=== PATIENT | female | born 1970 | race African-American/Black ===

== ENCOUNTER 2018-06-21 07:17 | Emergency (ER) | payer OTHER ==
[~2018-06-21] VITALS: Ht 170.2 cm; Wt 104.3 kg
--- NOTE | 2018-06-21 07:36 | PHYS DOC ---
Adult General Chief Complaint Chief Complaint: CHEST PAIN HPI HPI 47-year-old female presents with a 2 day history of constant left-sided chest discomfort. She states the pain is sharp in nature and made much worse when she takes a deep breath. She states when she takes a deep breath it feels like there something pulling on the left side. She has had a cough for approximately 2 months. She denies any fever chills or sweats but she states people in the house have been running around sick. She denies hemoptysis. She denies any dyspnea on exertion or any significant shortness of breath. 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 He denies any unilateral leg swelling or pain. She states when she is up and moving around she actually feels better and is definitely not short of breath with exertion. Patient states that she has had a dry cough that is not particularly bothersome over the last 2 months[] Review of Systems Review of Systems Constitutional: Denies fever or chills [] Eyes: Denies change in visual acuity, redness, or eye pain [] HENT: Denies nasal congestion or sore throat [] Respiratory: Per history of present illness[] Cardiovascular: No additional information not addressed in HPI [] GI: Denies abdominal pain, nausea, vomiting, bloody stools or diarrhea [] : Denies dysuria or hematuria [] Musculoskeletal: Denies back pain or joint pain [] Integument: Denies rash or skin lesions [] Neurologic: Denies headache, focal weakness or sensory changes [] Endocrine: Denies polyuria or polydipsia [] All other systems were reviewed and found to be within normal limits, except as documented in this note. Current Medications Current Medications Current Medications Medications (Trade) Dose Ordered Sig/[facility] Start Time Stop Time Status Last Admin Dose Admin Aspirin (Children'S Aspirin) 324 mg 1X ONCE 06/21/18 07:45 06/21/18 07:46 DC 06/21/18 08:16 324 MG Ketorolac Tromethamine (Toradol 30mg Vial) 30 mg 1X ONCE 06/21/18 08:00 06/21/18 08:01 DC 06/21/18 08:17 30 MG Allergies Allergies Allergies Coded Allergies Type Severity Reaction Last Updated Verified alendronate sodium Adverse Reaction Unknown Unknown 06/21/18 Yes hydrocodone Adverse Reaction Unknown Itching 06/21/18 Yes Physical Exam Physical Exam Constitutional: Well developed, well nourished, mild distress, non-toxic appearance. [] HENT: Normocephalic, atraumatic, bilateral external ears normal, oropharynx moist, no oral exudates, nose normal. [] Eyes: PERRLA, EOMI, conjunctiva normal, no discharge. [] Neck: Normal range of motion, no tenderness, supple, no stridor. [] Cardiovascular:Heart rate regular rhythm, no murmur [] Lungs & Thorax: Bilateral breath sounds clear to auscultation [] Abdomen: Bowel sounds normal, soft, no tenderness, no masses, no pulsatile masses. [] Skin: Warm, dry, no erythema, no rash. [] Back: No tenderness, no CVA tenderness. [] Extremities: No tenderness, no cyanosis, no clubbing, ROM intact, no edema. [] Neurologic: Alert and oriented X 3, normal motor function, normal sensory function, no focal deficits noted. [] Psychologic: Affect normal, judgement normal, mood normal. [] Current Patient Data Vital Signs Vital Signs Date Time Temp Pulse Resp B/P (MAP) Pulse Ox O2 Delivery O2 Flow Rate FiO2 06/21/18 07:20 98.4 86 18 171/82 (111) 99 Room Air 98.4 Lab Values Laboratory Tests Test 06/21/18 07:45 White Blood Count 13.8 x10^3/uL (4.0-11.0) H Red Blood Count 4.99 x10^6/uL (3.50-5.40) Hemoglobin 12.3 g/dL (12.0-15.5) Hematocrit 37.9 % (36.0-47.0) Mean Corpuscular Volume 76 fL (79-100) L Mean Corpuscular Hemoglobin 25 pg (25-35) Mean Corpuscular Hemoglobin Concent 33 g/dL (31-37) Red Cell Distribution Width 15.9 % (11.5-14.5) H Platelet Count 426 x10^3/uL (140-400) H Neutrophils (%) (Auto) 61 % (31-73) Lymphocytes (%) (Auto) 31 % (24-48) Monocytes (%) (Auto) 6 % (0-9) Eosinophils (%) (Auto) 1 % (0-3) Basophils (%) (Auto) 1 % (0-3) Neutrophils # (Auto) 8.4 x10^3uL (1.8-7.7) H Lymphocytes # (Auto) 4.3 x10^3/uL (1.0-4.8) Monocytes # (Auto) 0.9 x10^3/uL (0.0-1.1) Eosinophils # (Auto) 0.1 x10^3/uL (0.0-0.7) Basophils # (Auto) 0.1 x10^3/uL (0.0-0.2) Sodium Level 142 mmol/L (136-145) Potassium Level 4.0 mmol/L (3.5-5.1) Chloride Level 103 mmol/L (98-107) Carbon Dioxide Level 28 mmol/L (21-32) Anion Gap 11 (6-14) Blood Urea Nitrogen 10 mg/dL (7-20) Creatinine 0.8 mg/dL (0.6-1.0) Estimated GFR (Cockcroft-Gault) 77.2 BUN/Creatinine Ratio 13 (6-20) Glucose Level 107 mg/dL (70-99) H Calcium Level 9.3 mg/dL (8.5-10.1) Total Bilirubin 0.9 mg/dL (0.2-1.0) Aspartate Amino Transferase (AST) 17 U/L (15-37) Alanine Aminotransferase (ALT) 20 U/L (14-59) Alkaline Phosphatase 80 U/L (46-116) Troponin I Quantitative < 0.017 ng/mL (0.000-0.055) IS-Ngj-O-Type Natriuretic Peptide 16 pg/mL (0-124) Total Protein 8.5 g/dL (6.4-8.2) H Albumin 3.6 g/dL (3.4-5.0) Albumin/Globulin Ratio 0.7 (1.0-1.7) L Laboratory Tests 06/21/18 07:45 Laboratory Tests 06/21/18 07:45 EKG EKG [] Interpretation Time: EKG: Normal sinus rhythm rate of [address]-T changes Radiology/Procedures Radiology/Procedures [] Impressions: PROCEDURE: CHEST AP ONLY EXAM: Chest, single view. HISTORY: Chest pain. COMPARISON: None. FINDINGS: A frontal view of the chest is obtained. There is no infiltrate, pleural effusion or pneumothorax. The heart is normal in size. IMPRESSION: No acute pulmonary finding. Course & Med Decision Making Course & Med Decision Making Pertinent Labs and Imaging studies reviewed. (See chart for details) [ED course: Evaluation reveals a 47-year-old female with fairly constant atypical sounding chest pain for the last 2 days. Her troponin is negative and EKG is unremarkable. She is not tachycardic or hypoxic. I treated her with Toradol for the presumptive diagnosis of pleurisy and she did improve during her stay in the department. At this point I do not believe that she needs observation and can have a stress test as an outpatient.] Dragon Disclaimer Dragon Disclaimer This electronic medical record was generated, in whole or in part, using a voice recognition dictation system. Departure Departure Impression: Primary Impression: Pleurisy Disposition: 01 HOME, SELF-CARE Condition: IMPROVED Patient Instructions: Pleurisy Additional Instructions: Follow with her primary care physician this week for recheck. Return to the emergency department with any new or concerning symptoms Scripts Naproxen (NAPROXEN) 500 Mg Tablet 1 TAB PO BID PRN for PAIN, #30 TAB 1 Refill Prov: YAMILE MONAE DO 06/21/18 YAMILE MONAE DO Jun 21, 2018 07:36
--- NOTE | 2018-06-21 07:43 | EKG ---
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
[2018-06-21] MEDS ORDERED: ASPIRIN CHEWABLE 81 MG TABLET. PO ONE (07:45)
[2018-06-21 07:57] LABS: BASO # 0.1 x10^3/uL (0.0-0.2); BASO % 1 % (0-3); EOS # 0.1 x10^3/uL (0.0-0.7); EOS % 1 % (0-3); HEMATOCRIT 37.9 % (36.0-47.0); HEMOGLOBIN 12.3 g/dL (12.0-15.5); LYMPH # 4.3 x10^3/uL (1.0-4.8); LYMPH % 31 % (24-48); MEAN CORPUSCULAR HEMOGLOBIN 25 pg (25-35); MEAN CORPUSCULAR HGB CONC 33 g/dL (31-37); MEAN CORPUSCULAR VOLUME 76 fL (79-100); MONO # 0.9 x10^3/uL (0.0-1.1); MONO % 6 % (0-9); NEUT # 8.4 x10^3uL (1.8-7.7); NEUT % 61 % (31-73); PLATELET COUNT 426 x10^3/uL (140-400); RED BLOOD COUNT 4.99 x10^6/uL (3.50-5.40); RED CELL DISTRIBUTION WIDTH 15.9 % (11.5-14.5); WHITE BLOOD COUNT 13.8 x10^3/uL (4.0-11.0)
[2018-06-21] MEDS ORDERED: KETOROLAC 30 MG/ML VIAL. IV ONE (08:00)
--- NOTE | 2018-06-21 08:04 | RAD ---
EXAM: Chest, single view. HISTORY: Chest pain. COMPARISON: None. FINDINGS: A frontal view of the chest is obtained. There is no infiltrate, pleural effusion or pneumothorax. The heart is normal in size. IMPRESSION: No acute pulmonary finding. Electronically signed by: Asia Malave MD (06/21/2018 8:01 AM) [place]
[2018-06-21 08:10] LABS: CALCIUM 9.3 mg/dL (8.5-10.1); CREATININE 0.8 mg/dL (0.6-1.0); GFR 77.2
[2018-06-21 08:15] LABS: ALBUMIN 3.6 g/dL (3.4-5.0); ALBUMIN/GLOBULIN RATIO 0.7 (1.0-1.7); TOTAL BILIRUBIN 0.9 mg/dL (0.2-1.0); TOTAL PROTEIN 8.5 g/dL (6.4-8.2)
[2018-06-21] MEDS ORDERED: NAPR-514 PO (08:58)
[2018-06-21 09:00] VITALS: BP 135/67
== END 2018-06-21 09:12 | disposition home or self-care (01) ==
LOC: ER 07:17
DX: R09.1 Pleurisy (principal); Z88.8 Allergy status to other drugs, medicaments and biological substances; Z88.5 Allergy status to narcotic agent
CPT/HCPCS: 36415; 71045; 80053; 83880; 84484; 85025; 93005; 96374; 99284; J1885

== ENCOUNTER → 2020-04-27 | Outpatient (CLI) | payer OTHER ==
[2019-02-24 18:52] VITALS: BP 156/82
[~2020-04-27] MED LIST: ALBU2.5V8 IH; GUAI473L15 PO; LEVO750T31 PO; NAPR-514 PO
[2020-04-27 08:58] LABS: BASO # 0.1 x10^3/uL (0.0-0.2); BASO % 1 % (0-3); EOS # 0.1 x10^3/uL (0.0-0.7); EOS % 1 % (0-3); HEMATOCRIT 36.8 % (36.0-47.0); HEMOGLOBIN 12.6 g/dL (12.0-15.5); LYMPH # 4.4 x10^3/uL (1.0-4.8); LYMPH % 49 % (24-48); MEAN CORPUSCULAR HEMOGLOBIN 26 pg (25-35); MEAN CORPUSCULAR HGB CONC 34 g/dL (31-37); MEAN CORPUSCULAR VOLUME 75 fL (79-100); MONO # 0.6 x10^3/uL (0.0-1.1); MONO % 7 % (0-9); NEUT # 3.8 x10^3/uL (1.8-7.7); NEUT % 43 % (31-73); PLATELET COUNT 379 x10^3/uL (140-400); RED BLOOD COUNT 4.92 x10^6/uL (3.50-5.40); RED CELL DISTRIBUTION WIDTH 15.2 % (11.5-14.5); WHITE BLOOD COUNT 9.1 x10^3/uL (4.0-11.0)
[2020-04-27 09:00] LABS: ALBUMIN 3.4 g/dL (3.4-5.0); ALBUMIN/GLOBULIN RATIO 0.8 (1.0-1.7); CALCIUM 8.7 mg/dL (8.5-10.1); CREATININE 0.8 mg/dL (0.6-1.0); GFR 92.6; POTASSIUM 3.8 mmol/L (3.5-5.1); TOTAL BILIRUBIN 0.6 mg/dL (0.2-1.0); TOTAL PROTEIN 7.5 g/dL (6.4-8.2)
[2020-04-27 09:01] LABS: CHOLESTEROL/HDL RATIO 5.6
== END ==
LOC: LAB 07:48
PROVIDERS: ATTEND Family Medicine
DX: Z00.00 Encounter for general adult medical examination without abnormal findings (principal)
CPT/HCPCS: 36415; 80053; 80061; 82306; 84443; 85025

== ENCOUNTER → 2020-05-02 | Outpatient (CLI) | payer OTHER ==
[2019-02-24 18:52] VITALS: BP 156/82
--- NOTE | 2020-05-02 18:29 | RAD ---
Examination: 1. Bilateral diagnostic mammogram. 2. Limited right breast ultrasound. INDICATION: 49-year-old woman presenting with palpable lump in the right breast. TECHNIQUE: CC and MLO views of both breasts were obtained with 2-D and 3-D technique and reviewed wit h computer-aided detection. Targeted ultrasound of the right breast in the area of palpable concern w as also performed. FINDINGS: Almost entirely fatty replaced breast parenchyma. The left mammogram is negative. The right mammogram shows a cluster of circumscribed oval isodense masses in the superior right breas t is present measuring together up to 2.7 x 4.3 cm on the CC projection. These correlate to the area of palpable concern as marked at the skin surface with a triangular marker. Targeted ultrasound of the right breast in the area of palpable concern shows that this cluster of ci rcumscribed masses represent sonographically simple cysts the largest of which measures 2.6 cm in roel meter, with the next largest measuring 1.4 cm. These are located respectively at the 12:00 position 4 cm from the nipple and at the 11:30 o'clock position 4 cm from the nipple. Sonographic survey of the right axilla revealed no adenopathy. IMPRESSION: Benign cluster of cysts in the right breast correlates with the area of palpable concern. There is no mammographic or sonographic evidence of malignancy. BI-RADS Category 2 Benign findings Management of a clinical finding (if one is present) should be clinical, and should include biopsy of any clinically suspicious findings if present. In the absence of any clinically suspicious findings, recommend return to routine annual screening mammography, next due in one year. Patient entered into a reminder system with targeted due date for next mammogram. Electronically signed by: Yennifer Ly MD (05/02/2020 6:27 PM) [id number]
== END ==
LOC: MAMMO 14:11
PROVIDERS: ATTEND Family Medicine
DX: R92.2 Inconclusive mammogram (principal); N63.11 Unspecified lump in the right breast, upper outer quadrant
CPT/HCPCS: 76641; 77066

== ENCOUNTER 2021-03-08 02:24 | Emergency (ER) | payer OTHER ==
[~2021-03-08] VITALS: Ht 170.2 cm; Wt 104.0 kg
--- NOTE | 2021-03-08 03:06 | RAD ---
XR CHEST 1V History: Shortness of breath, cough. Comparison: 02/24/2019, 06/21/2018 Technique: Portable AP radiograph of the chest. Findings: The lungs are mildly hypoinflated. No airspace consolidation, pleural effusion or pneumothorax. The c ardiomediastinal silhouette and pulmonary vasculature are within normal limits. Osseous structures an d soft tissues are unremarkable. Impression: 1. Mild hypoinflation. No acute cardiopulmonary process. Electronically signed by: Douglas Torre MD (03/08/2021 3:04 AM) [facility]
[2021-03-08] MEDS ORDERED: ALBUTEROL SULFATE 2.5 MG/3 ML NEBU. NEB ONE (03:15)
[2021-03-08] MEDS ORDERED: guaiFENesin/CODEINE 100mg/10mg 5 ML LIQUID PO PRN (03:15)
[2021-03-08] MEDS ORDERED: methylPREDNISolone SOD SUCC PF 125 MG/2 ML VIAL. IM ONE (03:15)
[2021-03-08] MEDS ORDERED: PRED50TA PO (03:38)
[2021-03-08] MEDS ORDERED: GUAI120L35 PO (03:38)
[2021-03-08 03:50] VITALS: BP 132/74
[2021-03-08] MEDS ORDERED: ALBU2.5V8 INH (04:01)
--- NOTE | 2021-03-08 04:06 | PHYS DOC ---
Past Medical History Past Medical History: High Cholesterol, Other Additional Past Medical Histor: osteopenia Past Surgical History: Knee Replacement Additional Past Surgical Histo: LEFT KNEE ARTHROSCOPY Smoking Status: Never Smoker Alcohol Use: None Drug Use: None General Adult EDM: Chief Complaint: COUGH HPI: HPI: Patient is a 50 year old male presents with a chief complaint of nonproductive cough and wheezing since Thursday. Patient reports at times cough is intense and resulted in posttussive emesis. She denies any associated nausea fever muscle aches diarrhea or chest pain. Review of Systems: Review of Systems: Constitutional: Denies fever or chills. [] Eyes: Denies change in visual acuity. [] HENT: Denies nasal congestion or sore throat. [] Respiratory: Positive cough Cardiovascular: Denies chest pain or edema. [] GI: Denies abdominal pain, nausea,, bloody stools or diarrhea. [Posttussive emesis] : Denies dysuria. [] Musculoskeletal: Denies back pain or joint pain. [] Integument: Denies rash. [] Neurologic: Denies headache, focal weakness or sensory changes. [] Endocrine: Denies polyuria or polydipsia. [] Lymphatic: Denies swollen glands. [] Psychiatric: Denies depression or anxiety. [] Heart Score: C/O Chest Pain: N/A Risk Factors: Risk Factors: DM, Current or recent (<one month) smoker, HTN, HLP, family history of CAD, obesity. Risk Scores: Score 0 - 3: 2.5% MACE over next 6 weeks - Discharge Home Score 4 - 6: 20.3% MACE over next 6 weeks - Admit for Clinical Observation Score 7 - 10: 72.7% MACE over next 6 weeks - Early Invasive Strategies Current Medications: Current Medications Medications (Trade) Dose Ordered Sig/[facility] Start Time Stop Time Status Last Admin Dose Admin Albuterol Sulfate (Ventolin Neb Soln) 2.5 mg 1X ONCE 03/08/21 03:15 03/08/21 03:16 DC 03/08/21 03:30 2.5 MG Guaifenesin/ Codeine Phosphate (Robitussin Ac) 5 ml PRN Q6HRS PRN 03/08/21 03:15 03/08/21 03:21 5 ML Methylprednisolone Sodium Succinate (SOLU-Medrol 125MG VIAL) 125 mg 1X ONCE 03/08/21 03:15 03/08/21 03:16 DC 03/08/21 03:22 125 MG Allergies: Allergies: Allergies Coded Allergies Type Severity Reaction Last Updated Verified alendronate sodium Adverse Reaction Unknown Unknown 06/21/18 Yes hydrocodone Adverse Reaction Unknown Itching 06/21/18 Yes Physical Exam: PE: Constitutional: Well developed, well nourished, no acute distress, non-toxic appearance. [] HENT: Normocephalic, atraumatic, bilateral external ears normal, oropharynx moist, no oral exudates, nose normal. [] Eyes: PERRLA, EOMI, conjunctiva normal, no discharge. [] Neck: Normal range of motion, no tenderness, supple, no stridor. [] Cardiovascular:Heart rate regular rhythm, no murmur [] Lungs & Thorax: Bilateral breath sounds clear to auscultation [] Abdomen: Bowel sounds normal, soft, no tenderness, no masses, no pulsatile masses. [] Skin: Warm, dry, no erythema, no rash. [] Back: No tenderness, no CVA tenderness. [] Extremities: No tenderness, no cyanosis, no clubbing, ROM intact, no edema. [] Neurologic: Alert and oriented X 3, normal motor function, normal sensory function, no focal deficits noted. [] Psychologic: Affect normal, judgement normal, mood normal. [] Current Patient Data: Vital Signs: Vital Signs Date Time Temp Pulse Resp B/P (MAP) Pulse Ox O2 Delivery O2 Flow Rate FiO2 03/08/21 03:50 99 22 132/74 (93) 94 Room Air 03/08/21 02:46 98.3 98.3 EKG: EKG: [] Radiology/Procedures: Radiology/Procedures: [] Impression: X-ray no focal infiltrate Course & Med Decision Making: Course & Med Decision Making Pertinent Labs and Imaging studies reviewed. (See chart for details) [] Treated with Robitussin codeine and Solu-Medrol and albuterol. Patient discharged home on prednisone Robitussin with codeine and albuterol inhaler. Drew Disclaimer: Drew Disclaimer: This electronic medical record was generated, in whole or in part, using a voice recognition dictation system. Departure Departure Impression: Primary Impression: Bronchitis Disposition: 01 HOME / SELF CARE / HOMELESS Patient Instructions: Bronchitis Scripts Albuterol Sulfate (Proair Hfa) 8.5 Gm Hfa.aer.ad 1 PUFF INH PRN Q6HRS PRN for SHORTNESS OF BREATH for 10 Days, #1 EACH Prov: KELLY PATRICIA DO 03/08/21 Guaifenesin/Codeine Phosphate (Codeine-Guaifen 10-100 mg/5 ml) 120 Ml Liquid 10-May ML PO PRN Q4HRS PRN for cough and congestion MDD 60 Milliliter(s) for 4 Days, #120 ML 0 Refills Prov: KELLY PATRICIA DO 03/08/21 Prednisone (PREDNISONE) 50 Mg Tablet 1 TAB PO DAILY, #5 TAB Prov: KELLY PATRICIA DO 03/08/21 KELLY PATRICIA DO Mar 08, 2021 04:06
--- NOTE | 2021-03-11 11:13 | NUR ---
IP: Informed pt of negative covid test. Pt verbalized understanding.
== END 2021-03-08 04:10 ==
LOC: ER 02:24
DX: J40 Bronchitis, not specified as acute or chronic (principal); Z20.822 Contact with and (suspected) exposure to COVID-19; E78.00 Pure hypercholesterolemia, unspecified; Z88.5 Allergy status to narcotic agent; Z88.8 Allergy status to other drugs, medicaments and biological substances
CPT/HCPCS: 71045; 94640; 96372; 99284; J2930; J7613; U0003

== ENCOUNTER → 2021-08-19 | Outpatient (CLI) | payer OTHER ==
[~2021-08-19] MED LIST changes: +ALBU2.5V8 INH; +GUAI120L35 PO; +PRED50TA PO
[2021-08-19 12:56] LABS: BASO % 0 % (0-3); EOS # 0.1 x10^3/uL (0.0-0.7); EOS % 1 % (0-3); HEMATOCRIT 37.3 % (36.0-47.0); HEMOGLOBIN 12.4 g/dL (12.0-15.5); LYMPH # 3.6 x10^3/uL (1.0-4.8); LYMPH % 40 % (24-48); MEAN CORPUSCULAR HEMOGLOBIN 25 pg (25-35); MEAN CORPUSCULAR HGB CONC 33 g/dL (31-37); MEAN CORPUSCULAR VOLUME 76 fL (79-100); MONO # 0.7 x10^3/uL (0.0-1.1); MONO % 7 % (0-9); NEUT # 4.6 x10^3/uL (1.8-7.7); NEUT % 52 % (31-73); PLATELET COUNT 378 x10^3/uL (140-400); RED BLOOD COUNT 4.94 x10^6/uL (3.50-5.40); RED CELL DISTRIBUTION WIDTH 15.7 % (11.5-14.5)
[2021-08-19 13:11] LABS: ALBUMIN 3.3 g/dL (3.4-5.0); ALBUMIN/GLOBULIN RATIO 0.7 (1.0-1.7); CALCIUM 8.8 mg/dL (8.5-10.1); CREATININE 0.9 mg/dL (0.6-1.0); GFR 80.5; POTASSIUM 3.9 mmol/L (3.5-5.1); TOTAL BILIRUBIN 0.5 mg/dL (0.2-1.0)
[2021-08-19 13:20] LABS: FREE T4 1.02 ng/dL (0.76-1.46); THYROID STIM HORMONE (TSH) 1.568 uIU/mL (0.358-3.74)
[2021-08-20 01:09] LABS: HEMOGLOBIN A1C 7.3 % (4.8-5.6)
== END ==
LOC: LAB 12:24
PROVIDERS: ATTEND Family Medicine
DX: Z01.419 Encounter for gynecological examination (general) (routine) without abnormal findings (principal); Z13.1 Encounter for screening for diabetes mellitus; R53.83 Other fatigue; E78.5 Hyperlipidemia, unspecified
CPT/HCPCS: 36415; 80053; 80061; 82306; 82607; 83036; 84439; 84443; 85025

== ENCOUNTER → 2021-08-26 | Outpatient (CLI) | payer OTHER ==
--- NOTE | 2021-08-27 07:46 | RAD ---
EXAM: BILATERAL DIGITAL 3D SCREENING MAMMOGRAPHY. HISTORY: Routine mammographic screening. TECHNIQUE: Bilateral digital 3D and tomographic images were obtained in CC and MLO projections. Compu ter-aided detection was applied. COMPARISON: 05/02/2020. COMPOSITION: B. There are scattered areas of fibroglandular density. FINDINGS: Circumscribed masses within the right breast at the 2:00 position have increased in size. P reviously these were evaluated sonographically demonstrating a cluster of simple appearing cysts. The y now measure roughly 5.2 x 3.5 cm mammographically. On the left, there is no suspicious finding. The parenchymal pattern is stable. BI-RADS CATEGORY 0: Incomplete--Needs Additional Imaging Evaluation. RECOMMENDATION: 1. Sonography of the right 12:00 position to assess an increased mass, likely reflecting enlarging be nign cysts. Electronically signed by: Liudmila Cowan MD (08/26/2021 11:44 AM) [id number]
== END ==
LOC: MAMMO 10:44
PROVIDERS: ATTEND Family Medicine
DX: Z12.31 Encounter for screening mammogram for malignant neoplasm of breast (principal)
CPT/HCPCS: 77063; 77067

== ENCOUNTER → 2021-09-10 | Outpatient (CLI) | payer OTHER ==
--- NOTE | 2021-09-10 11:26 | RAD ---
DIAGNOSTIC RIGHT BREAST ULTRASOUND INDICATION: Call back for enlarging right circumscribed masses COMPARISON: Ultrasound 05/02/2020. Mammogram 08/26/2021 FINDINGS: In the right breast area of concern, 12:00 radial 4 cm from nipple there is a 3.6 x 2.3 x 3.2 cm circ umscribed cyst and adjacent 1.6 x 1.4 x 1.5 cm circumscribed cyst. No masses identified. IMPRESSION: 1. Benign right breast cysts. ASSESSMENT: BI-RADS 2: Benign. RECOMMENDATION: Routine annual screening mammogram. The facility will notify the patient of the results via mail. Patient information will be entered int o the mammography reminder system with a target recall date for the next mammogram. A reminder letter will be generated by the facility. Electronically signed by: Douglas Torre MD (09/10/2021 11:24 AM) [id number]
== END ==
LOC: US 12:12
PROVIDERS: ATTEND Family Medicine
DX: N60.01 Solitary cyst of right breast (principal)
CPT/HCPCS: 76641